=== PATIENT | female | born 2000 | race Caucasian/White ===

== ENCOUNTER 2022-09-02 05:20 | Emergency (ER) | payer MEDICAID ==
[~2022-09-02] VITALS: Ht 152.4 cm; Wt 90.7 kg
[2022-09-02 05:33] VITALS: BP 113/72
[2022-09-02 05:42] VITALS: BP 113/72
[2022-09-02] MEDS ORDERED: IPRATROPIUM 0.02% 0.5 MG/2.5 ML NEBU INH ONE (06:30)
[2022-09-02] MEDS ORDERED: predniSONE 20 MG TAB PO ONE (06:30)
[2022-09-02] MEDS ORDERED: ALBUTEROL 0.083% 2.5 MG/3 ML NEBU INH ONE (06:30)
--- NOTE | 2022-09-02 06:46 | NUR ---
PT BACK FROM XRAY. SWABS COLLECTED AND SENT TO LAB
[2022-09-02] MEDS ORDERED: DEXT118S25 PO (07:11)
[2022-09-02] MEDS ORDERED: PRED20TA5 PO (07:11)
[2022-09-02] MEDS ORDERED: SUD30 PO (07:11)
[2022-09-02] MEDS ORDERED: ALBU0.0912 INH (07:11)
--- NOTE | 2022-09-02 07:43 | NUR ---
Patient discharged with v/s stable. Written and verbal after care instructions given and explained. Patient alert, oriented and verbalized understanding of instructions. Ambulatory with steady gait. All questions addressed prior to discharge. ID band removed. Patient advised to follow up with PMD. Rx of PREDNISONE,MUCINEX AND SUDAFED given. Patient educated on indication of medication including possible reaction and side effects. Opportunity to ask questions provided and answered.
== END 2022-09-02 07:43 | disposition home or self-care (01) ==
LOC: MED 05:20
DX: J45.909 Unspecified asthma, uncomplicated (principal); Z20.822 Contact with and (suspected) exposure to COVID-19; Z79.899 Other long term (current) drug therapy
CPT/HCPCS: 71046; 87426; 87804; 94640; 94760; 99284; J7512; J7613; J7644